=== PATIENT | female | born 2000 | race Two or more races ===

== ENCOUNTER 2023-11-26 12:13 | Outpatient (CLI) | payer OTHER | END 2023-11-26 12:14 | disposition home or self-care (01) | LOC: NUCLEAR 12:13 | PROVIDERS: ATTEND Internal Medicine Sports Medicine | DX: C73 Malignant neoplasm of thyroid gland (principal); E89.0 Postprocedural hypothyroidism ==

== ENCOUNTER 2023-12-01 13:25 | Outpatient (CLI) | payer OTHER | END 2023-12-01 13:26 | disposition home or self-care (01) | LOC: NUCLEAR 13:25 | PROVIDERS: ATTEND Internal Medicine Sports Medicine | DX: C73 Malignant neoplasm of thyroid gland (principal); E89.0 Postprocedural hypothyroidism ==

== ENCOUNTER 2024-12-01 10:38 | Outpatient (CLI) | payer OTHER | END 2024-12-01 10:40 | disposition home or self-care (01) | LOC: NUCLEAR 10:38 | PROVIDERS: ATTEND Internal Medicine Sports Medicine | DX: C73 Malignant neoplasm of thyroid gland (principal) ==